=== PATIENT | female | born 1955 | race Caucasian/White ===

== ENCOUNTER 2022-02-25 13:18 | Observation (INO) ==
[2022-02-25] MEDS ORDERED: propofoL 200 MG/20 ML VIAL IV ONE (16:41)
[2022-02-25] MEDS ORDERED: DEXAMETHASONE 4 MG/1 ML VIAL ONE (16:41)
[2022-02-25] MEDS ORDERED: MIDAZOLAM 2 MG/2 ML VIAL ONE (16:41)
[2022-02-25] MEDS ORDERED: fentaNYL 100 MCG/2 ML VIAL ONE (16:41)
[2022-02-25] MEDS ORDERED: SUCCINYLCHOLINE 200 MG/10 ML VIAL ONE (16:41)
[2022-02-25] MEDS ORDERED: ROCURONIUM 50 MG/5 ML VIAL IV ONE (16:41)
[2022-02-25] MEDS ORDERED: LIDOCAINE 2% 5 ML VIAL ONE (16:41)
[2022-02-25] MEDS ORDERED: ONDANSETRON 4 MG/2 ML VIAL ONE (16:41)
[2022-02-25] MEDS ORDERED: hydrALAZINE 20 MG/1 ML VIAL IV PRN (16:51)
[2022-02-25] MEDS ORDERED: ONDANSETRON 4 MG/2 ML VIAL IV PRN (16:51)
[2022-02-25] MEDS ORDERED: GLUCAGON 1 MG VIAL IM PRN (16:51)
[2022-02-25] MEDS ORDERED: DEXTROSE 10% 250 ML BAG IV PRN (17:04)
[2022-02-25 17:20] LABS: Basophils % 0.4 % (0.0-0.8); Eosinophils # 0.2 10*3/uL (0.0-0.87); Eosinophils % 1.7 % (0.00-10.9); Hematocrit 34.5 VOL% (35.7-47.0); Immature Granulocytes % 0.8 %; Immature Granulocytes Absolute 0.07 #; Lymphocytes # 1.1 10*3/uL (1.4-4.0); Mean Corpuscular HGB Conc 31.9 GM/DL (32-36); Mean Corpuscular Volume 92.5 FL (87-102); Mean Platelet Volume 9.6 FL (9.6-12.0); Monocytes # 0.9 10*3/uL (0.11-0.8); Monocytes % 9.6 % (1.7-12.7); Neutrophils % 75.5 % (38.7-73.9); Platelet Count 74 T/CUMM (130-400); Red Blood Count 3.73 MC/CUMM (3.8-5.5); Red Cell Distribution Width 17.7 % (9.3-17.3); White Blood Count 9.2 T/CUMM (4-12)
[2022-02-25 17:23] LABS: Alanine Aminotransferase 31 U/L (13-56); Albumin 3.5 G/DL (3.4-5.0); Alkaline Phosphatase 231 U/L (45-117); Aspartate Amino Transferase 29 U/L (0-37); Bilirubin,Total < 0.39 MG/DL (0.20-1.00); Blood Urea Nitrogen 17 MG/DL (7-18); Calcium 9.1 MG/DL (8.5-10.1); Carbon Dioxide 27 MMOL/L (21-32); Chloride 110 MMOL/L (98-107); Glucose 114 MG/DL (74-106); Osmolality,Calculated 281.4 MOS/KG (273-304); Potassium 3.9 MMOL/L (3.5-5.1); Sodium 140 MMOL/L (136-145); Total Protein 6.5 G/DL (6.4-8.2)
[2022-02-25] MEDS ORDERED: CETIRIZINE 10 MG TABLET PO PRN (17:23)
[2022-02-25] MEDS ORDERED: SODIUM CHLORIDE 0.9% 1,000 ML IV SCH (17:30)
[2022-02-25] MEDS ORDERED: DIPH/TET/ACEL PERT BOOSTER VACCINE 0.5 ML VIAL IM ONE (17:30)
[2022-02-25 18:19] LABS: PT Patient Result 11.1 SECS (10.5-12.0); Partial Thromboplastin Time 26.8 SECS (23.8-32.1)
[2022-02-25] MEDS ORDERED: SEVOFLURANE 1 UNIT/15 MINUTE INH ONE (19:55)
[2022-02-25] MEDS: HYDROmorphone 1 MG/1 ML SYRINGE IV PRN ×2 (20:20→20:33)
[2022-02-26] MEDS: MORPHINE 2 MG/1 ML SYRINGE IV PRN ×2 (02:09→05:56)
[2022-02-26 05:17] LABS: Basophils % 0.2 % (0.0-0.8); Hematocrit 32.9 VOL% (35.7-47.0); Hemoglobin 10.7 GM/DL (12.0-16.0); Immature Granulocytes % 1.1 %; Immature Granulocytes Absolute 0.09 #; Lymphocytes # 0.5 10*3/uL (1.4-4.0); Lymphocytes % 5.8 % (21.3-54.2); Mean Corpuscular HGB Conc 32.5 GM/DL (32-36); Mean Corpuscular Volume 92.2 FL (87-102); Mean Platelet Volume 10.7 FL (9.6-12.0); Monocytes # 0.4 10*3/uL (0.11-0.8); Monocytes % 4.6 % (1.7-12.7); Neutrophils % 88.3 % (38.7-73.9); Platelet Count 72 T/CUMM (130-400); Red Blood Count 3.57 MC/CUMM (3.8-5.5); Red Cell Distribution Width 17.8 % (9.3-17.3); White Blood Count 8.6 T/CUMM (4-12)
[2022-02-26 05:44] LABS: Alanine Aminotransferase 27 U/L (13-56); Alkaline Phosphatase 206 U/L (45-117); Aspartate Amino Transferase 29 U/L (0-37); Bilirubin,Total < 0.39 MG/DL (0.20-1.00); Blood Urea Nitrogen 15 MG/DL (7-18); Calcium 8.8 MG/DL (8.5-10.1); Carbon Dioxide 25 MMOL/L (21-32); Chloride 112 MMOL/L (98-107); Glucose 151 MG/DL (74-106); Osmolality,Calculated 284.3 MOS/KG (273-304); Potassium 5.4 MMOL/L (3.5-5.1); Sodium 141 MMOL/L (136-145); Total Protein 5.8 G/DL (6.4-8.2)
[2022-02-26 08:05] VITALS: BP 142/66
[2022-02-26] MEDS ORDERED: CHOLECALCIFEROL 5,000 UNIT TABLET PO SCH (09:00)
[2022-02-26] MEDS ORDERED: PANTOPRAZOLE 40 MG TABLET PO SCH (09:00)
[2022-02-26] MEDS ORDERED: LEVOTHYROXINE 75 MCG TABLET PO SCH (09:00)
[2022-03-11] MEDS ORDERED: CYANOCOBALAMIN 1000 MCG/1 ML VIAL IM SCH (09:00)
== END 2022-02-26 09:10 | disposition home or self-care (01) ==
LOC: N.5E 13:18 → N.ED 13:18 → N.5E 02-26 21:59
PROVIDERS: ADMIT Internal Medicine; ATTEND Internal Medicine